=== PATIENT | male | born 1995 | race Caucasian/White ===

== ENCOUNTER 2020-10-15 16:32 | Emergency (ER) | payer MEDICAID ==
[~2020-10-15] VITALS: Ht 170.2 cm; Wt 127.0 kg
[2020-10-15 16:55] VITALS: BP 133/61
--- NOTE | 2020-10-15 17:03 | NUR ---
SHEAR TENDER. PT EVALUATED IN TRIAGE/PIT BY CHA ALEXANDER, PT SWABBED FOR COVID, SPECIMEN WALKED TO LAB BY SEASONAL DRIVER MEIR. PT TO BE DISCHARGED FROM TRIAGE PER CHA ALEXANDER. ERP DISCUSSED SELF-ISOLATION/QUARANTINE, PT VERBALIZED UNDERSTANDING. AWAITING DC PAPERS
== END 2020-10-15 17:23 | disposition home or self-care (01) ==
LOC: ED 17:17
DX: B34.9 Viral infection, unspecified (principal); Z20.828 Contact with and (suspected) exposure to other viral communicable diseases; J02.9 Acute pharyngitis, unspecified
CPT/HCPCS: 87635; 99283